=== PATIENT | female | born 1990 | race Caucasian/White ===

== ENCOUNTER 2017-01-05 19:46 | Emergency (ER) | payer SELFPAY ==
[2017-01-05 19:55] VITALS: BP 98/61; PULSE 82; RESP 16; TEMP 98.2; O2SAT 100
--- NOTE | 2017-01-05 21:18 | C.PDOC ---
History Of Present Illness 26 yr old female presents to the ER stating several years ago she had a neck injury and since then time to time she gets neck spasm. Patient states currently the pain has been present for the past 2-3 days and radiates to bilateral arms. Patient attributes the pain this time to sleeping wrong, states she woke up with pain. Patient denies chest pain, SOB, back pain, weakness or numbness. Time Seen by Provider: 01/05/17 20:05 Chief Complaint (Nursing): Medical Clearance History Per: Patient History/Exam Limitations: no limitations Onset/Duration Of Symptoms: Days (2-3 days ) Past Medical History Reviewed: Historical Data, Nursing Documentation, Vital Signs Vital Signs: Last Vital Signs Temp 98.2 F 01/05/17 19:52 Pulse 82 01/05/17 19:52 Resp 16 01/05/17 19:52 BP 98/61 L 01/05/17 19:52 Pulse Ox 100 01/05/17 21:48 Family History: States: No Known Family Hx - Social History Hx Tobacco Use: No Hx Alcohol Use: No Hx Substance Use: No - Immunization History Hx Tetanus Toxoid Vaccination: Yes Hx Influenza Vaccination: Yes Hx Pneumococcal Vaccination: No Review Of Systems Except As Marked, All Systems Reviewed And Found Negative. Cardiovascular: Negative for: Chest Pain Respiratory: Negative for: Shortness of Breath Musculoskeletal: Positive for: Neck Pain (Neck spasm ). Negative for: Back Pain Neurological: Negative for: Weakness, Numbness Physical Exam - Physical Exam Appears: Well, Non-toxic, No Acute Distress Skin: Warm, Dry, No Rash Head: Atraumatic, Normacephalic Oral Mucosa: Moist Neck: Normal ROM, No Midline Cervical Tenderness, Other ((+) Tenderness to the bilateral lateral neck muscle. ) Chest: Symmetrical, No Tenderness Cardiovascular: Rhythm Regular, No Murmur Back: Paraspinal Tenderness (Paraspinal muscle tenderness) Extremity: Normal ROM, No Swelling Neurological/Psych: Oriented x3, Normal Speech, Normal Motor ED Course And Treatment O2 Sat by Pulse Oximetry: 100 Progress Note: On re-evaluation patient feels better, no neuro deficit, no meningeal signs. Patient will be d/chome with PMD/Clinic follow up. Medical Decision Making Medical Decision Making: PLAN: * Valium PO * Toradol IM Disposition - Disposition Referrals: [facility] at [facility] [Outside] Disposition: HOME/ ROUTINE Disposition Time: 21:45 Condition: STABLE Additional Instructions: Follow up in Clinic within 2-3 days. return to ED if feel worse. 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 - Scribe Statement The provider has reviewed the documentation as recorded by the Scribe Anju Vazquez All medical record entries made by the Scribe were at my direction and personally dictated by me. I have reviewed the chart and agree that the record accurately reflects my personal performance of the history, physical exam, medical decision making, and the department course for this patient. I have also personally directed, reviewed, and agree with the discharge instructions and disposition.
== END 2017-01-05 21:52 | disposition home or self-care (01) ==
LOC: C.ER 19:46
DX: M54.12 Radiculopathy, cervical region (principal); M62.838 Other muscle spasm
CPT/HCPCS: 96372; 99282; J1885

== ENCOUNTER 2017-08-19 14:55 | Emergency (ER) | payer SELFPAY ==
[2017-08-19 15:03] VITALS: PULSE 95; RESP 18; TEMP 99
--- NOTE | 2017-08-19 16:51 | C.PDOC ---
History Of Present Illness Gladys Edmonds is a 26 y/o female who presents to the ER for 1 week history of cough, with yellow-cody sputum. Today noticed sputum with streak of blood x1 episode. No shortness of breath or fever. Symptoms are associated with bilateral ear pain and throat pain. Pt drinking tea but not taking any analgesics at home. Time Seen by Provider: 08/19/17 15:31 Chief Complaint (Nursing): Cough, Cold, Congestion History Per: Patient History/Exam Limitations: no limitations Onset/Duration Of Symptoms: Days (x 1 week) Current Symptoms Are (Timing): Still Present Past Medical History Reviewed: Historical Data, Nursing Documentation, Vital Signs Vital Signs: Last Vital Signs Temp 99 F 08/19/17 16:57 Pulse 95 H 08/19/17 16:57 Resp 18 08/19/17 16:57 BP 100/60 08/19/17 16:57 Pulse Ox 98 08/19/17 16:57 - Medical History PMH: No Chronic Diseases Surgical History: No Surg Hx Family History: States: Unknown Family Hx - Social History Hx Tobacco Use: No Hx Alcohol Use: No Hx Substance Use: No - Immunization History Hx Tetanus Toxoid Vaccination: Yes Hx Influenza Vaccination: Yes Hx Pneumococcal Vaccination: No Review Of Systems Constitutional: Negative for: Fever ENT: Positive for: Ear Pain (B/L), Throat Pain Respiratory: Positive for: Cough, Sputum (yellow, + blood). Negative for: Shortness of Breath Physical Exam - Physical Exam Appears: Non-toxic, No Acute Distress Skin: Normal Color, Warm, Dry Head: Atraumatic, Normacephalic Eye(s): bilateral: Normal Inspection, PERRL, EOMI Ear(s): Left: Normal, Right: TM Obscured By Wax Nose: Normal Throat: Erythema, No Exudate (or tonsillar swelling) Neck: Normal ROM, Supple Lymphatic: Other (1 tender posterior cervical node on right side) Cardiovascular: Rhythm Regular, No Murmur Respiratory: Normal Breath Sounds (clear to auscultation b/l), No Accessory Muscle Use, No Rhonchi, No Wheezing Gastrointestinal/Abdominal: Normal Exam, Bowel Sounds (normal), Soft, No Tenderness Neurological/Psych: Oriented x3, Normal Speech ED Course And Treatment O2 Sat by Pulse Oximetry: 100 (RA) Pulse Ox Interpretation: Normal Medical Decision Making Medical Decision Making: Initial Plan: Tylenol 975 mg PO Impression: URI Pt is medically stable for discharge. Advised taking mucinex for cough, and tylenol/motrin for pain. Disposition Counseled Patient/Family Regarding: Diagnosis, Need For Followup - Disposition Referrals: [facility] [Outside] Disposition: HOME/ ROUTINE Disposition Time: 16:52 Condition: STABLE Additional Instructions: Please drink increased fluids, avoid dairy for a few days. Mucinex for cough. Tylenol or Motrin for ear, throat and back pain. Increase bed rest. Follow up next week with clinic if symptoms not decreasing/resolving. 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 - Scribe Statement The provider has reviewed the documentation as recorded by the Scribe (Yudith Silva) All medical record entries made by the Scribe were at my direction and personally dictated by me. I have reviewed the chart and agree that the record accurately reflects my personal performance of the history, physical exam, medical decision making, and the department course for this patient. I have also personally directed, reviewed, and agree with the discharge instructions and disposition.
[2017-08-19 16:59] VITALS: BP 100/60
[2017-08-19 17:28] VITALS: O2SAT 100
== END 2017-08-19 16:57 | disposition home or self-care (01) ==
LOC: C.ER 14:55
DX: J06.9 Acute upper respiratory infection, unspecified (principal)

== ENCOUNTER 2017-10-05 05:03 | Emergency (ER) | payer SELFPAY ==
[2017-10-05 05:18] LABS: SQUAMOUS EPITHIAL 9 /hpf (0-5)
[2017-10-05 05:19] LABS: HCG,QUALITATIVE URINE NEGATIVE (NEGATIVE); URINE BILIRUBIN NEGATIVE (NEGATIVE); URINE BLOOD TRACE (NEGATIVE); URINE CLARITY Clear (Clear); URINE COLOR YELLOW (YELLOW); URINE GLUCOSE (UA) NEGATIVE (Normal); URINE LEUKOCYTE ESTERASE TRACE Leu/uL (Negative); URINE NITRATE NEGATIVE (NEGATIVE); URINE PROTEIN NEGATIVE (NEGATIVE); URINE UROBILINOGEN Normal mg/dL (0.2-1.0)
[2017-10-05 05:23] VITALS: TEMP 98.1; O2SAT 100
[2017-10-05] MEDS ORDERED: cefTRIAXone 250 MG, Lidocaine Hydrochloride 1% 1 ML IM ONE (05:36)
--- NOTE | 2017-10-05 05:44 | C.PDOC ---
History Of Present Illness 27 year old female presents to the ER with a complaint of dysuria associated with urinary frequency for the past 3 days. Patient also reports having foul smelling discharge for the past month. Denies fever, back pain, vomiting, or diarrhea. Time Seen by Provider: 10/05/17 05:20 Chief Complaint (Nursing): Female Genitourinary History Per: Patient History/Exam Limitations: no limitations Onset/Duration Of Symptoms: Days Current Symptoms Are (Timing): Still Present Quality Of Discomfort: Unable To Describe Associated Symptoms: denies: Fever, Vomiting, Diarrhea, Back Pain Alleviating Factors: None Recent travel outside of the [place]: No Abnormal Vaginal Bleeding: No Past Medical History Reviewed: Historical Data, Nursing Documentation, Vital Signs Vital Signs: Last Vital Signs Temp 98.1 F 10/05/17 05:15 Pulse 78 10/05/17 06:13 Resp 18 10/05/17 06:13 BP 108/72 10/05/17 06:13 Pulse Ox 100 10/05/17 06:13 Family History: States: Unknown Family Hx - Social History Hx Tobacco Use: No Hx Alcohol Use: No Hx Substance Use: No - Immunization History Hx Tetanus Toxoid Vaccination: Yes Hx Influenza Vaccination: Yes Hx Pneumococcal Vaccination: No Review Of Systems Constitutional: Negative for: Fever Gastrointestinal: Negative for: Vomiting, Diarrhea Genitourinary: Positive for: Dysuria, Frequency Musculoskeletal: Negative for: Back Pain Physical Exam - Physical Exam Appears: Non-toxic, No Acute Distress Skin: Normal Color, Warm, Dry Head: Atraumatic, Normacephalic Eye(s): bilateral: Normal Inspection Oral Mucosa: Moist Chest: Symmetrical, No Tenderness Cardiovascular: Rhythm Regular Respiratory: Normal Breath Sounds, No Rales, No Rhonchi, No Wheezing Gastrointestinal/Abdominal: Soft, No Tenderness Back: No CVA Tenderness Neurological/Psych: Oriented x3, Normal Speech ED Course And Treatment O2 Sat by Pulse Oximetry: 100 (Room air) Pulse Ox Interpretation: Normal Medical Decision Making Medical Decision Making: Urinalysis ordered, results were slightly positive for UTI. Will started on macrobid, rocephin, and zithromax and instruct to follow up with HEEL SEAT POUNDER. Disposition - Disposition Referrals: [facility] [Outside] Disposition: HOME/ ROUTINE Disposition Time: 06:19 Condition: GOOD Additional Instructions: Follow up with the OBGYN within 1-2 days. Return if worsened. 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 - Scribe Statement The provider has reviewed the documentation as recorded by the Scriboumou Woodard All medical record entries made by the Guerda were at my direction and personally dictated by me. I have reviewed the chart and agree that the record accurately reflects my personal performance of the history, physical exam, medical decision making, and the department course for this patient. I have also personally directed, reviewed, and agree with the discharge instructions and disposition.
[2017-10-05 06:14] VITALS: BP 108/72; PULSE 78; RESP 18
== END 2017-10-05 06:45 | disposition home or self-care (01) ==
LOC: C.ER 05:03
DX: N76.0 Acute vaginitis (principal)
CPT/HCPCS: 81001; 84703; 87086; 87181; 96372; 99284; J0696

== ENCOUNTER 2017-12-10 20:25 | Emergency (ER) | payer SELFPAY ==
[2017-12-10 20:25] VITALS: BMI 24.5
[2017-12-10 20:47] VITALS: BP 100/61; PULSE 77; RESP 20; TEMP 98.7; O2SAT 100
--- NOTE | 2017-12-10 20:55 | C.PDOC ---
History Of Present Illness 27 year old female presents to the ED c/o sore throat for the past 3 days. Patient reports she noticed some white spots in the back of her throat. Patient states her daughter was also diagnosed and treated for strep throat. Patient denies fever, chills, nausea, vomit, diarrhea. Time Seen by Provider: 12/10/17 20:49 Chief Complaint (Nursing): ENT Problem History Per: Patient History/Exam Limitations: no limitations Onset/Duration Of Symptoms: Days Current Symptoms Are (Timing): Still Present Location Of Pain: Throat Sick Contacts (Context): Family Member(s) (daughter) Associated Symptoms: Sore Throat Ear Symptoms: Bilateral: None Recent travel outside of the [place]: No Additional History Per: Patient Past Medical History Reviewed: Historical Data, Nursing Documentation, Vital Signs Vital Signs: Last Vital Signs Temp 98.7 F 12/10/17 20:44 Pulse 77 12/10/17 20:44 Resp 20 12/10/17 20:44 BP 100/61 12/10/17 20:44 Pulse Ox 100 12/10/17 21:04 - Medical History PMH: No Chronic Diseases Surgical History: No Surg Hx Family History: States: Unknown Family Hx - Social History Hx Tobacco Use: No Hx Alcohol Use: No Hx Substance Use: No - Immunization History Hx Tetanus Toxoid Vaccination: Yes Hx Influenza Vaccination: Yes Hx Pneumococcal Vaccination: No Review Of Systems Constitutional: Negative for: Fever, Chills ENT: Positive for: Throat Pain Cardiovascular: Negative for: Chest Pain Respiratory: Negative for: Cough, Shortness of Breath Skin: Negative for: Rash Physical Exam - Physical Exam Appears: Non-toxic, No Acute Distress Skin: Normal Color, Warm, Dry Head: Atraumatic, Normacephalic Eye(s): bilateral: Normal Inspection Ear(s): Bilateral: Normal Nose: No Discharge Oral Mucosa: Moist Throat: Erythema (pharyngeal ), Exudate (tonsilar) Neck: Normal ROM, Supple Chest: Symmetrical Cardiovascular: Rhythm Regular, No Murmur Respiratory: Normal Breath Sounds, No Rales, No Rhonchi, No Wheezing Gastrointestinal/Abdominal: Soft, No Tenderness, No Guarding, No Rebound Extremity: Normal ROM, No Tenderness, No Swelling Neurological/Psych: Oriented x3 Gait: Steady ED Course And Treatment O2 Sat by Pulse Oximetry: 100 (ON RA) Pulse Ox Interpretation: Normal Medical Decision Making Medical Decision Making: Plan: * Zithromax 500 mg PO Patient with acute pharyngitis and exposed to strep. Will treat with Zithromax, allergic to penicillin. Disposition Counseled Patient/Family Regarding: Diagnosis, Need For Followup, Rx Given - Disposition Referrals: [facility] [Outside] [facility] [Outside] Disposition: HOME/ ROUTINE Disposition Time: 21:15 Condition: GOOD Additional Instructions: Follow up with your primary medical doctor or clinic in 2-5 days for further evaluation. Take medications as prescribed. Take Tylenol or Motrin alternating every 4-6 hours for Fever 100.4F or higher. Rest and drink plenty of fluids to prevent dehydration. Try vanilla ice cream to improve eating/drinking, this is cold soothing and tastes good. May also try lozenges or cepacol spray over the counter. 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 - Scribe Statement The provider has reviewed the documentation as recorded by the Scribe Marcelino Tellez All medical record entries made by the Guerda were at my direction and personally dictated by me. I have reviewed the chart and agree that the record accurately reflects my personal performance of the history, physical exam, medical decision making, and the department course for this patient. I have also personally directed, reviewed, and agree with the discharge instructions and disposition.
== END 2017-12-10 21:18 | disposition home or self-care (01) ==
LOC: C.ER 20:25
DX: J02.9 Acute pharyngitis, unspecified (principal)

== ENCOUNTER 2018-07-30 09:13 | Emergency (ER) | payer MEDICAID ==
[2018-07-30 09:14] VITALS: BMI 24.5
[2018-07-30 09:50] VITALS: O2SAT 100
--- NOTE | 2018-07-30 10:18 | C.PDOC ---
History Of Present Illness 27 y/o female with history of UTI and PID presents to ED with c/o intermittent pelvic pain for 1 month. (+) low back pain (+) urinary frequency. States she took Doxycycline last night for pain. Patient denies fever, chills, nausea, v omiting, vaginal discharge, vaginal bleeding, abdominal pain, dysuria, sob or any other complaints at this time. LMP 06/18/18 Time Seen by Provider: 07/30/18 09:46 Chief Complaint (Nursing): Abdominal Pain History Per: Patient History/Exam Limitations: no limitations Onset/Duration Of Symptoms: Days Current Symptoms Are (Timing): Still Present Past Medical History Reviewed: Historical Data, Nursing Documentation, Vital Signs Vital Signs: Last Vital Signs Temp 98.8 F 07/30/18 09:30 Pulse 92 H 07/30/18 09:30 Resp 18 07/30/18 09:30 BP 91/59 L 07/30/18 09:30 Pulse Ox 100 07/30/18 09:30 - Medical History PMH: No Chronic Diseases Surgical History: No Surg Hx Family History: States: No Known Family Hx - Social History Hx Tobacco Use: No Hx Alcohol Use: No Hx Substance Use: No - Immunization History Hx Tetanus Toxoid Vaccination: No Hx Influenza Vaccination: No Hx Pneumococcal Vaccination: No Review Of Systems Except As Marked, All Systems Reviewed And Found Negative. Constitutional: Negative for: Fever, Chills Gastrointestinal: Positive for: Abdominal Pain. Negative for: Nausea, Vomiting Genitourinary: Positive for: Frequency Musculoskeletal: Positive for: Back Pain Skin: Negative for: Rash Physical Exam - Physical Exam Appears: Non-toxic, No Acute Distress Skin: Warm, Dry, No Rash Head: Atraumatic, Normacephalic Eye(s): bilateral: Normal Inspection, EOMI Nose: Normal Oral Mucosa: Moist Neck: Normal ROM, Supple Chest: Symmetrical Cardiovascular: Rhythm Regular Respiratory: Normal Breath Sounds, No Rales, No Rhonchi, No Wheezing Gastrointestinal/Abdominal: Soft, Tenderness (suprapubic), No Guarding, No Rebound Back: No CVA Tenderness, No Vertebral Tenderness, Paraspinal Tenderness ((+) lower paralumbar tenderness) Extremity: Normal ROM Neurological/Psych: Oriented x3, Normal Speech, Normal Cognition ED Course And Treatment - Laboratory Results Result Diagrams: 07/30/18 10:52 07/30/18 10:52 O2 Sat by Pulse Oximetry: 100 (RA) Pulse Ox Interpretation: Normal - CT Scan/US Abdomen US Other Rad Studies (CT/US): Interpreted By Me, Read By Radiologist CT/US Interpretation: Impression: Live single intrauterine with estimated gestational age 7 weeks 2 days by crown-rump length calculation. heart rate 144 bpm. 2.4 cm possible right corpus luteum as above; attention on follow-up. Small free fluid within the cul-de-sac and bilateral adnexa. Advise an anomaly screen at 16-18 weeks gestational age Progress Note: Urine culture sent, UA ordered. POC urine preg +, US ordered. Pt denies concern for STD stating "my boyfriend was tested" and "this feels different.". Pt declined pain medication. Discussed with pt results and limitations. Pt instructed to follow up with OB in 1-2 days. Disposition - Disposition Disposition: HOME/ ROUTINE Disposition Time: 13:36 Condition: STABLE Additional Instructions: Follow up with primary medical doctor in 1-3 days without fail for further evaluation. Take medications as prescribed. Return to the emergency department at any time if symptoms persist or worsen. 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 - Scribe Statement The provider has reviewed the documentation as recorded by the Guerda Mccloud All medical record entries made by the Guerda were at my direction and personally dictated by me. I have reviewed the chart and agree that the record accurately reflects my personal performance of the history, physical exam, medical decision making, and the department course for this patient. I have also personally directed, reviewed, and agree with the discharge instructions and disposition.
[2018-07-30 10:36] LABS: HCG,QUALITATIVE URINE POSITIVE (NEGATIVE)
[2018-07-30 10:47] LABS: SQUAMOUS EPITHIAL 8 /hpf (0-5); URINE BACTERIA RARE (<OCC); URINE BILIRUBIN NEGATIVE (NEGATIVE); URINE BLOOD 1+ (NEGATIVE); URINE CLARITY Hazy (Clear); URINE COLOR Yellow (YELLOW); URINE GLUCOSE (UA) NORMAL (Normal); URINE LEUKOCYTE ESTERASE 1+ Leu/uL (Negative); URINE PROTEIN 1+ mg/dL (NEGATIVE); URINE UROBILINOGEN NORMAL mg/dL (0.2-1.0)
[2018-07-30 11:04] LABS: BASO # 0.1 K/uL (0.0-0.2); BASO % 0.7 % (0.0-2.0); EOS # 0.1 K/uL (0.0-0.7); EOS % 1.2 % (0.0-4.0); HEMOGLOBIN 13.1 g/dL (11.0-16.0); LYMPH # 1.8 K/uL (1.0-4.3); LYMPH % 25.4 % (20.0-40.0); MEAN CELL VOLUME 84.8 fL (81.0-99.0); MEAN CORPUSCULAR HEMOGLOBIN 28.4 pg (27.0-31.0); MEAN CORPUSCULAR HGB CONC 33.5 g/dL (33.0-37.0); MEAN PLATELET VOLUME 8.7 fL (7.2-11.7); MONO # 0.5 K/uL (0.0-0.8); MONO % 7.6 % (0.0-10.0); NEUT # 4.6 K/uL (1.8-7.0); NEUT % 65.1 % (50.0-75.0); NRBC % 0.1 % (0.0-2.0); RBC 4.62 Mil/uL (3.80-5.20); RED CELL DISTRIBUTION WIDTH 12.5 % (11.5-14.5); WHITE BLOOD COUNT 7.1 K/uL (4.8-10.8)
[2018-07-30 11:23] LABS: ALB/GLOB RATIO 1.3 (1.0-2.1); ALBUMIN 4.1 g/dL (3.5-5.0); ALT/SGPT 21 U/L (9-52); AST/SGOT 18 U/L (14-36); BLOOD UREA NITROGEN 7 mg/dL (7-17); CALCIUM 9.2 mg/dl (8.6-10.4); GFR NON-AFRICAN AMERICAN > 60
[2018-07-30 12:47] VITALS: TEMP 98.5
--- NOTE | 2018-07-30 12:51 | US ---
Indication: Pain Comparison: 1st trimester ultrasound performed 09/21/14 Technique: Real-time transabdominal pelvic ultrasound was performed. In addition a transvaginal pelvic ultrasound was necessary to better depict pelvic anatomy. Findings: The uterus measures approximately 9.2 x 4.8 x 5.7 cm. Anteverted. Cervix length measures approximately 3.5 cm. There is a single intrauterine fetus present. 2 mm yolk sac. The gestational sac measures 2.4 cm and is compatible with a gestational age of 7 weeks 0 days. The crown-rump length measures 1.1 cm and is compatible with a gestational age of 7 weeks 2 days. There is heart motion which measured 144 BPM. The right ovary measures 4.1 x 2.7 x 3.2 cm. 2.2 x 1.8 x 2.4 cm heterogeneous lesion with peripheral vascularity, possibly corpus luteum. The left ovary measures 3.0 x 1.8 x 2.8 cm. Blood flow was demonstrated to both ovaries. Small pelvic free fluid within the cul-de-sac and bilateral adnexa. Impression: Live single intrauterine with estimated gestational age 7 weeks 2 days by crown-rump length calculation. heart rate 144 bpm. 2.4 cm possible right corpus luteum as above; attention on follow-up. Small free fluid within the cul-de-sac and bilateral adnexa. Advise an anomaly screen at 16-18 weeks gestational age
[2018-07-30 13:57] VITALS: BP 100/57; PULSE 83; RESP 20
== END 2018-07-30 13:56 | disposition home or self-care (01) ==
LOC: C.ER 09:13
DX: O23.41 Unspecified infection of urinary tract in pregnancy, first trimester (principal); Z3A.01 Less than 8 weeks gestation of pregnancy

== ENCOUNTER 2018-08-08 10:42 | Emergency (ER) | payer MEDICAID, OTHER ==
[2018-08-08 10:42] VITALS: BMI 24.5
[2018-08-08 11:00] VITALS: RESP 18
--- NOTE | 2018-08-08 11:31 | C.PDOC ---
History Of Present Illness 27 year old female /A5 who is currently 8 weeks presents to the ED for evaluation for vaginal bleeding and abdominal pain for 1 day. The patient describes the abdominal pain as cramping and notes bleeding vaginally with clots/tissue 1 day ago which has since resolved. She also reports prior ED visit 1 week ago where she was treated for abdominal pain, intrauterine confirmed, prescribed Macrobid, and states finishing the prescribed medications with no complications. Currently she does not have a PMD, pending SIGNALING DESIGN ENGINEER appointment for August 16. Denies fever, chills, nausea, vomiting, diarrhea, chest pain, shortness of breath, and any other associated symptoms. LMP: Last : February 2017 No PMD. Time Seen by Provider: 08/08/18 10:59 Chief Complaint (Nursing): Abdominal Pain History Per: Patient History/Exam Limitations: no limitations Onset/Duration Of Symptoms: Days (x1) Current Symptoms Are (Timing): Still Present Location Of Pain/Discomfort: Suprapubic Quality Of Discomfort: Cramping Recent travel outside of the [place]: No Past Medical History Reviewed: Historical Data, Nursing Documentation, Vital Signs Vital Signs: Last Vital Signs Temp 98.2 F 08/08/18 10:52 Pulse 83 08/08/18 10:52 Resp 18 08/08/18 10:52 BP 90/57 L 08/08/18 10:52 Pulse Ox 99 08/08/18 10:52 - Medical History PMH: No Chronic Diseases Family History: States: Unknown Family Hx - Social History Hx Tobacco Use: No Hx Alcohol Use: No Hx Substance Use: No - Immunization History Hx Tetanus Toxoid Vaccination: No Hx Influenza Vaccination: No Hx Pneumococcal Vaccination: No Review Of Systems Except As Marked, All Systems Reviewed And Found Negative. Constitutional: Negative for: Fever, Chills Eyes: Negative for: Vision Change Cardiovascular: Negative for: Chest Pain, Palpitations Respiratory: Negative for: Cough, Shortness of Breath Gastrointestinal: Positive for: Abdominal Pain. Negative for: Nausea, Vomiting, Diarrhea Genitourinary: Positive for: Vaginal Bleeding (clot/tissue. ) Musculoskeletal: Negative for: Neck Pain, Back Pain Skin: Negative for: Rash Neurological: Negative for: Weakness, Numbness, Headache, Dizziness Physical Exam - Physical Exam Appears: Well, Non-toxic, No Acute Distress Skin: Warm, Dry Head: Atraumatic, Normacephalic Eye(s): bilateral: Normal Inspection, PERRL, EOMI Ear(s): Bilateral: Normal Nose: Normal Oral Mucosa: Moist Neck: Normal ROM, Supple Chest: Symmetrical, No Deformity Cardiovascular: Rhythm Regular, No Murmur Respiratory: Normal Breath Sounds, No Rales, No Rhonchi, No Wheezing Gastrointestinal/Abdominal: Normal Exam, Bowel Sounds (normoactive), Soft, No Tenderness, No Distention, No Guarding Back: Normal Inspection, No CVA Tenderness Extremity: Normal ROM (x4), Capillary Refill (<2s) Extremity: Bilateral: Atraumatic, No Pedal Edema, Normal Color And Temperature, Normal ROM Pulses: Left Radial: Normal, Right Radial: Normal Neurological/Psych: Oriented x3, Normal Speech, Normal Cognition, Normal Motor, Normal Sensation Gait: Steady ED Course And Treatment - Laboratory Results Result Diagrams: 18 11:31 1218 11:31 Lab Interpretation: Normal O2 Sat by Pulse Oximetry: 99 (RA) Pulse Ox Interpretation: Normal - CT Scan/US US Pelvic/Transvag. Other Rad Studies (CT/US): Read By Radiologist CT/US Interpretation: FINDINGS: UTERUS: Measures 11.2 x 6.6 x 8.7 cm. Anteve rted, enlarged with normal myometrial echotexture. No fibroid or other mass lesion seen. ENDOMETRIUM: Measures 2.3 mm in diameter. The central endometrial echo complex is thick and heterogeneous without central flow on color Doppler imaging. CERVIX: No cervical abnormality identified. RIGHT OVARY: Measures 5.0 x 2.1 x 3.7 cm. No solid mass. Normal flow. There is a 2.6 x 1.9 x 1.7 cm complicated/hemorrhagic cyst. LEFT OVARY: Measures 3.3 x 1.3 x 3.3 cm. No solid mass. Normal flow. FREE FLUID: There is moderate complicated free fluid in the pelvis. OTHER FINDINGS: None. IMPRESSION: No evidence of intrauterine gestation. Thick heterogeneous central endometrial echo complex. Clinical follow-up is advised. 2.6 cm complicated/hemorrhagic cyst in the right ovary. Complicated/hemorrhagic fluid in the cul de sac. Reevaluation Time: 13:30 Reassessment Condition: Improved - Physician Consult Information Time Consulting Physician Contacted: 13:20 Physician Contacted: Svetlana A Mahin Outcome Of Conversation: Diagnostic testing results reviewed in depth. Recommends discharge home with outpatient OBGYN followup. Medical Decision Making Medical Decision Making: Initial plan: -CBC, CMP, beta Hcg Urinalysis US Pelvis/Transvag -Urine culture. Patient with confirmed IUP on 07/30/18. Patient's bloodtype is B +, no indication for Rhogam at this time. Hypotension is patient's baseline. Patient is asymptomatic. Progress/Update: 13:20 Spoke with OB sewing machine operator floorperson Dr. Stockton regarding the patient's case. Recommends no further intervention, patient should follow-up as an outpatient with OBGYN. 13:30 Discussed results and diagnosis of complete spontaneous with the patient, who verbalized understanding. No medical complaints at this time. Admits to resolution of abdominal pain. Plan of care discussed with patient, and strict instructions given regarding prescriptions, importance of follow up, and signs to return to Emergency De partment, to include recurrent vaginal bleeding, abdominal pain, N/V, fever, chills, or any other new/worsening symptoms. Patient verbalizes understanding of discussion. Patient A&Ox3, ambulating with steady gait, stable for discharge home. Disposition Discussed With Dr.: Svetlana Stockton Comment: Recommends outpatient followup Doctor Will See Patient In The: Office Counseled Patient/Family Regarding: Studies Performed, Diagnosis, Need For Followup, Rx Given - Disposition Referrals: [facility] [Outside] [facility] [Outside] Disposition: HOME/ ROUTINE Disposition Time: 13:30 Condition: GOOD Additional Instructions: Followup with OBGYN within 2 days Followup with primary doctor within 2 days Return to ER for any new/worsening symptoms Instructions: Miscarriage, Dealing With Miscarriage Forms: [facility] (Macedonian), Work Excuse - Clinical Impression Clinical Impression: Spontaneous - PA / FAMILY COURT COUNSELLOR / Resident Statement MD/DO has reviewed & agrees with the documentation as recorded. - Scribe Statement The provider has reviewed the documentation as recorded by the Scribe (Gela Sotelo) All medical record entries made by the Scribe were at my direction and personally dictated by me. I have reviewed the chart and agree that the record accurately reflects my personal performance of the history, physical exam, medical decision making, and the department course for this patient. I have also personally directed, reviewed, and agree with the discharge instructions and disposition.
[2018-08-08 11:44] LABS: BASO # 0.1 K/uL (0.0-0.2); BASO % 0.9 % (0.0-2.0); EOS # 0.2 K/uL (0.0-0.7); HEMOGLOBIN 12.5 g/dL (11.0-16.0); LYMPH # 1.6 K/uL (1.0-4.3); LYMPH % 24.4 % (20.0-40.0); MEAN CELL VOLUME 86.4 fL (81.0-99.0); MEAN CORPUSCULAR HEMOGLOBIN 29.1 pg (27.0-31.0); MEAN CORPUSCULAR HGB CONC 33.6 g/dL (33.0-37.0); MEAN PLATELET VOLUME 8.7 fL (7.2-11.7); MONO # 0.3 K/uL (0.0-0.8); MONO % 4.2 % (0.0-10.0); NEUT # 4.5 K/uL (1.8-7.0); NEUT % 67.5 % (50.0-75.0); RBC 4.31 Mil/uL (3.80-5.20); RED CELL DISTRIBUTION WIDTH 12.6 % (11.5-14.5); WHITE BLOOD COUNT 6.7 K/uL (4.8-10.8)
[2018-08-08 11:56] LABS: SQUAMOUS EPITHIAL 8 /hpf (0-5); URINE BACTERIA RARE (<OCC); URINE BILIRUBIN NEGATIVE (NEGATIVE); URINE BLOOD 2+ (NEGATIVE); URINE CLARITY Clear (Clear); URINE COLOR Yellow (YELLOW); URINE GLUCOSE (UA) NORMAL (Normal); URINE LEUKOCYTE ESTERASE NEG Leu/uL (Negative); URINE PROTEIN NEGATIVE (NEGATIVE); URINE UROBILINOGEN NORMAL mg/dL (0.2-1.0)
[2018-08-08 12:03] LABS: ALB/GLOB RATIO 1.4 (1.0-2.1); ALBUMIN 4.3 g/dL (3.5-5.0); ALT/SGPT 18 U/L (9-52); AST/SGOT 24 U/L (14-36); BLOOD UREA NITROGEN 8 mg/dL (7-17); CALCIUM 8.9 mg/dl (8.6-10.4); GFR NON-AFRICAN AMERICAN > 60
--- NOTE | 2018-08-08 12:51 | US ---
Date of service: 08/08/2018 HISTORY: OB, 8wks , vaginal bleeding, abdominal pain COMPARISON: None available. TECHNIQUE: Transabdominal and transvaginal pelvic ultrasound was performed. FINDINGS: UTERUS: Measures 11.2 x 6.6 x 8.7 cm. Anteverted, enlarged with normal myometrial echotexture. No fibroid or other mass lesion seen. ENDOMETRIUM: Measures 2.3 mm in diameter. The central endometrial echo complex is thick and heterogeneous without central flow on color Doppler imaging. CERVIX: No cervical abnormality identified. RIGHT OVARY: Measures 5.0 x 2.1 x 3.7 cm. No solid mass. Normal flow. There is a 2.6 x 1.9 x 1.7 cm complicated/hemorrhagic cyst. LEFT OVARY: Measures 3.3 x 1.3 x 3.3 cm. No solid mass. Normal flow. FREE FLUID: There is moderate complicated free fluid in the pelvis. OTHER FINDINGS: None. IMPRESSION: No evidence of intrauterine gestation. Thick heterogeneous central endometrial echo complex. Clinical follow-up is advised. 2.6 cm complicated/hemorrhagic cyst in the right ovary. Complicated/hemorrhagic fluid in the cul de sac.
[2018-08-08 13:33] VITALS: BP 93/66; PULSE 79; TEMP 99.1
[2018-08-08 23:21] VITALS: O2SAT 99
== END 2018-08-08 13:41 | disposition home or self-care (01) ==
LOC: C.ER 10:42
DX: O03.9 Complete or unspecified spontaneous abortion without complication (principal); Z3A.08 8 weeks gestation of pregnancy

== ENCOUNTER 2018-08-21 21:03 | Emergency (ER) | payer SELFPAY ==
[2018-08-21 21:03] VITALS: BMI 24.5
[2018-08-21 21:20] VITALS: PULSE 80
[2018-08-21] MEDS ORDERED: Sodium Chloride 0.9% 1,000 ML IV ONE (21:28)
--- NOTE | 2018-08-21 21:31 | C.PDOC ---
History Of Present Illness 27 year old female presents to the ER with a complaint of LUQ pain that began today. Patient states the pain radiates to the back. Denies dysuria or hematuria. Chief Complaint (Nursing): Abdominal Pain History Per: Patient History/Exam Limitations: no limitations Onset/Duration Of Symptoms: Hrs Current Symptoms Are (Timing): Still Present Location Of Pain/Discomfort: LUQ Radiation Of Pain To:: Back Quality Of Discomfort: Unable To Describe Associated Symptoms: denies: Urinary Symptoms Exacerbating Factors: None Alleviating Factors: None Recent travel outside of the [place]: No Abnormal Vaginal Bleeding: No Past Medical History Reviewed: Historical Data, Nursing Documentation, Vital Signs Vital Signs: Last Vital Signs Temp 98.5 F 08/21/18 21:16 Pulse 80 08/21/18 21:16 Resp 16 08/21/18 21:16 BP 100/64 08/21/18 21:16 Pulse Ox 100 08/21/18 21:16 Family History: States: Unknown Family Hx - Social History Hx Tobacco Use: No Hx Alcohol Use: No Hx Substance Use: No - Immunization History Hx Tetanus Toxoid Vaccination: No Hx Influenza Vaccination: No Hx Pneumococcal Vaccination: No Review Of Systems Constitutional: Negative for: Fever, Chills Cardiovascular: Negative for: Chest Pain, Palpitations Respiratory: Negative for: Cough, Shortness of Breath Gastrointestinal: Positive for: Abdominal Pain (Radiating to back) Genitourinary: Negative for: Dysuria, Hematuria Neurological: Negative for: Weakness, Numbness Physical Exam - Physical Exam Appears: Non-toxic Skin: Normal Color, Warm, Dry Head: Atraumatic, Normacephalic Eye(s): bilateral: Normal Inspection Oral Mucosa: Moist Neck: Normal, Supple Chest: Symmetrical, No Tenderness Cardiovascular: Rhythm Regular Respiratory: Normal Breath Sounds, No Rales, No Rhonchi, No Wheezing Gastrointestinal/Abdominal: Soft, Tenderness (LUQ), No Guarding, No Rebound Back: No CVA Tenderness Neurological/Psych: Oriented x3, Normal Speech ED Course And Treatment - Laboratory Results Result Diagrams: 08/21/18 21:51 08/21/18 21:51 O2 Sat by Pulse Oximetry: 100 (Room air) Pulse Ox Interpretation: Normal Progress Note: CT abd/pel, blood work, and urinalysis ordered. IV fluids and toradol administered. Disposition Counseled Patient/Family Regarding: Diagnosis - Disposition Referrals: [facility] at [facility] [Outside] Disposition: HOME/ ROUTINE Disposition Time: 02:27 Condition: STABLE Prescriptions: Dicyclomine [Bentyl] 10 mg PO TID #10 cap Famotidine [Pepcid] 20 mg PO BID #20 tab Instructions: Acute Abdomen (Belly Pain), Child (DC), Gastritis (DC) Forms: [employer] [facility] (Hebrew) - POA Present On Arrival: None - Clinical Impression Clinical Impression: Abdominal pain, Gastritis - Scribe Statement The provider has reviewed the documentation as recorded by the Scriboumou Woodard All medical record entries made by the Cieraiboumou were at my direction and personally dictated by me. I have reviewed the chart and agree that the record accurately reflects my personal performance of the history, physical exam, medical decision making, and the department course for this patient. I have also personally directed, reviewed, and agree with the discharge instructions and disposition.
[2018-08-21 21:56] LABS: BASO # 0.1 K/uL (0.0-0.2); BASO % 1.1 % (0.0-2.0); EOS # 0.1 K/uL (0.0-0.7); HEMOGLOBIN 13.5 g/dL (11.0-16.0); LYMPH # 2.9 K/uL (1.0-4.3); LYMPH % 38.7 % (20.0-40.0); MEAN CELL VOLUME 86.7 fL (81.0-99.0); MEAN CORPUSCULAR HEMOGLOBIN 28.4 pg (27.0-31.0); MEAN CORPUSCULAR HGB CONC 32.8 g/dL (33.0-37.0); MEAN PLATELET VOLUME 8.2 fL (7.2-11.7); MONO # 0.4 K/uL (0.0-0.8); MONO % 5.5 % (0.0-10.0); NEUT # 3.9 K/uL (1.8-7.0); NEUT % 52.7 % (50.0-75.0); RBC 4.77 Mil/uL (3.80-5.20); RED CELL DISTRIBUTION WIDTH 12.4 % (11.5-14.5); WHITE BLOOD COUNT 7.4 K/uL (4.8-10.8)
[2018-08-21 21:56] LABS: SQUAMOUS EPITHIAL 9 /hpf (0-5); URINE AMORPHOUS SEDIMENT RARE /ul (<OCC); URINE BACTERIA RARE (<OCC); URINE BILIRUBIN NEGATIVE (NEGATIVE); URINE BLOOD 1+ (NEGATIVE); URINE CLARITY Hazy (Clear); URINE COLOR Yellow (YELLOW); URINE GLUCOSE (UA) NORMAL (Normal); URINE LEUKOCYTE ESTERASE NEG Leu/uL (Negative); URINE PROTEIN NEGATIVE (NEGATIVE)
[2018-08-21 22:24] LABS: ALB/GLOB RATIO 1.4 (1.0-2.1); ALBUMIN 4.5 g/dL (3.5-5.0); ALT/SGPT 15 U/L (9-52); AST/SGOT 22 U/L (14-36); BLOOD UREA NITROGEN 10 mg/dL (7-17); CALCIUM 9.1 mg/dl (8.6-10.4); GFR NON-AFRICAN AMERICAN > 60; LIPASE 101 U/L (23-300)
[2018-08-21] MEDS ORDERED: Iodixanol 320 MG/ML 100 ML BOTTLE IV ONE (22:53)
[2018-08-22 02:47] VITALS: BP 90/63; RESP 20; TEMP 98.3; O2SAT 98
--- NOTE | 2018-08-22 13:19 | CT ---
Date of service: 08/21/2018 PROCEDURE: CT Abdomen and Pelvis with contrast HISTORY: left upper abd pain COMPARISON: None available. TECHNIQUE: Contrast dose: 100 mL Visipaque 320 IV Radiation dose: Total exam DLP = 207.15 mGy-cm. This CT exam was performed using one or more of the following dose reduction techniques: Automated exposure control, adjustment of the mA and/or kV according to patient size, and/or use of iterative reconstruction technique. FINDINGS: LOWER THORAX: No visible consolidation, pleural effusion, or pneumothorax. LIVER: Unremarkable. GALLBLADDER AND BILE DUCTS: Unremarkable. PANCREAS: Unremarkable. SPLEEN: Unremarkable. ADRENALS: Unremarkable. KIDNEYS AND URETERS: The kidneys enhance symmetrically. No hydronephrosis or obstructing calculus identified. VASCULATURE: No aortic aneurysm. No atherosclerotic calcification or mural plaque present. BOWEL: Stomach is nondistended. Lack of oral contrast limits evaluation for bowel pathology. Bowel loops appear within normal limits of caliber without evidence of obstruction. APPENDIX: No secondary signs of acute appendicitis. PERITONEUM: No significant free fluid. No definite free air. LYMPH NODES: No bulky adenopathy identified. BLADDER: Under distention of the urinary bladder appears otherwise unremarkable. REPRODUCTIVE: The uterus is present. Evidence of fluid distending the endometrium. BONES: No acute osseous abnormality is detected. OTHER FINDINGS: None. IMPRESSION: Fluid appears to distend the endometrial canal. Otherwise unremarkable. Preliminary impression was provided by [employer].
== END 2018-08-22 02:55 | disposition home or self-care (01) ==
LOC: C.ER 21:03
DX: K29.70 Gastritis, unspecified, without bleeding (principal); R10.12 Left upper quadrant pain
CPT/HCPCS: 74177; 80053; 81001; 83690; 84703; 85025; 96374; 99285; J1885; J7030; Q9967

== ENCOUNTER 2018-09-04 10:45 | Emergency (ER) | payer SELFPAY ==
[2018-09-04 10:45] VITALS: BMI 24.5
--- NOTE | 2018-09-04 13:33 | C.PDOC ---
History Of Present Illness 28 y/o female presents to ED c/o diffuse abdominal pain, bilateral upper abdominal pain, and pelvic pain x3 weeks. She states symptoms began after she had a D&E on 08/20/18, with a cervical block; Pain apparently began the day aft er. She states she was seen in the ER 1 week ago for same symptoms, was told she may have gastritis. Patient denies nausea, vomiting, diarrhea, dysuria/hematuria. She admits to one episode of thick white discharge yesterday, but states that resolved. Time Seen by Provider: 09/04/18 11:17 Chief Complaint (Nursing): Abdominal Pain History Per: Patient History/Exam Limitations: no limitations Onset/Duration Of Symptoms: Persistent Current Symptoms Are (Timing): Still Present Severity: Mild Quality Of Discomfort: "Pain" Past Medical History Reviewed: Historical Data, Nursing Documentation, Vital Signs Vital Signs: Last Vital Signs Temp 98.5 F 09/04/18 11:05 Pulse 86 09/04/18 11:05 Resp 17 09/04/18 11:05 BP 101/70 09/04/18 11:05 Pulse Ox 100 09/04/18 11:05 - Medical History PMH: No Chronic Diseases Other Surgeries: D&E 08/14/18 Family History: States: No Known Family Hx - Social History Hx Tobacco Use: No Hx Alcohol Use: No Hx Substance Use: No - Immunization History Hx Tetanus Toxoid Vaccination: No Hx Influenza Vaccination: No Hx Pneumococcal Vaccination: No Review Of Systems Constitutional: Negative for: Fever Cardiovascular: Negative for: Chest Pain Respiratory: Negative for: Shortness of Breath Gastrointestinal: Positive for: Abdominal Pain. Negative for: Nausea, Vomiting, Diarrhea Genitourinary: Positive for: Pelvic Pain. Negative for: Dysuria, Hematuria, Vaginal Bleeding Skin: Negative for: Rash Physical Exam - Physical Exam Appears: Well, Non-toxic, No Acute Distress Skin: Normal Color, Warm, Dry, No Rash Eye(s): bilateral: Normal Inspection Oral Mucosa: Moist Neck: Supple Cardiovascular: Rhythm Regular Respiratory: Normal Breath Sounds, No Rales, No Rhonchi, No Wheezing Gastrointestinal/Abdominal: Bowel Sounds, Soft, Tenderness (mild diffuse tenderness, greatest in suprapubic area), No Distention, No Guarding, No Rebound, Other ((-) McBurney's, (-) Rovsing's) Back: Normal Inspection, No CVA Tenderness Extremity: Bilateral: Atraumatic, Normal Color And Temperature, Normal ROM Neurological/Psych: Oriented x3 ED Course And Treatment - Laboratory Results Result Diagrams: 09/04/18 14:25 09/04/18 14:25 O2 Sat by Pulse Oximetry: 100 (RA) Pulse Ox Interpretation: Normal Progress Note: Blood work, UA, Upreg, transvaginal US ordered and reviewed. UPreg still (+) , beta is 64.94. Patient is still only three weeks post elective D&E . Disposition - Disposition Disposition Time: 19:00 Condition: STABLE Forms: [employer] (Slovak) - Clinical Impression Clinical Impression: Abdominal pain, Pelvic pain - Scribe Statement The provider has reviewed the documentation as recorded by the Cieraiboumou Sow Provider Attestation: All medical record entries made by the Cieraibe were at my direction and personally dictated by me. I have reviewed the chart and agree that the record accurately reflects my personal performance of the history, physical exam, medical decision making, and the department course for this patient. I have also personally directed, reviewed, and agree with the discharge instructions and disposition. Physician Patient Turnover Patient Signed Over To: Orlando Haji Handoff Comments: pending ultrasound, reassessment
[2018-09-04 14:47] LABS: BASO % 0.5 % (0.0-2.0); EOS # 0.1 K/uL (0.0-0.7); EOS % 1.8 % (0.0-4.0); HEMOGLOBIN 14.7 g/dL (11.0-16.0); LYMPH # 1.8 K/uL (1.0-4.3); LYMPH % 26.5 % (20.0-40.0); MEAN CELL VOLUME 88.6 fL (81.0-99.0); MEAN CORPUSCULAR HEMOGLOBIN 28.9 pg (27.0-31.0); MEAN CORPUSCULAR HGB CONC 32.7 g/dL (33.0-37.0); MEAN PLATELET VOLUME 8.8 fL (7.2-11.7); MONO # 0.3 K/uL (0.0-0.8); MONO % 4.6 % (0.0-10.0); NEUT # 4.5 K/uL (1.8-7.0); NEUT % 66.6 % (50.0-75.0); RBC 5.1 Mil/uL (3.80-5.20); RED CELL DISTRIBUTION WIDTH 12.5 % (11.5-14.5); WHITE BLOOD COUNT 6.8 K/uL (4.8-10.8)
[2018-09-04 14:53] LABS: HCG,QUALITATIVE URINE POSITIVE (NEGATIVE)
[2018-09-04 15:08] LABS: ALB/GLOB RATIO 1.4 (1.0-2.1); ALBUMIN 4.8 g/dL (3.5-5.0); ALT/SGPT 16 U/L (9-52); AST/SGOT 25 U/L (14-36); BLOOD UREA NITROGEN 11 mg/dL (7-17); CALCIUM 9.1 mg/dl (8.6-10.4); GFR NON-AFRICAN AMERICAN > 60; LIPASE 102 U/L (23-300)
[2018-09-04 15:42] LABS: SQUAMOUS EPITHIAL 11 /hpf (0-5); URINE BILIRUBIN NEGATIVE (NEGATIVE); URINE CLARITY Hazy (Clear); URINE COLOR Yellow (YELLOW); URINE GLUCOSE (UA) NORMAL (Normal); URINE LEUKOCYTE ESTERASE TRACE Leu/uL (Negative); URINE PROTEIN 1+ mg/dL (NEGATIVE); URINE UROBILINOGEN NORMAL mg/dL (0.2-1.0)
[2018-09-04 15:44] LABS: URINE BLOOD TRACE (NEGATIVE)
[2018-09-04 22:11] VITALS: BP 124/75; PULSE 84; RESP 14; TEMP 98.2; O2SAT 98
--- NOTE | 2018-09-05 13:16 | US ---
Date of service: 09/04/2018 PROCEDURE: HISTORY: s/p d+c COMPARISON: CT abdomen and pelvis 08/21/2018; 08/08/2018 pelvic transvaginal ultrasound TECHNIQUE: Transabdominal transvaginal FINDINGS: The uterus is anteverted measures 8.7 x 4.4 x by 5.0 cm. The fundal endometrial tissues appear abnormally heterogeneous here. Heterogeneous cystic hyperplastic changes are 1 consideration. Endometrial neoplasm not excluded. Beta HCG levels are 64.94. Paint Coating Machine Operator consultation is advised. A pelvic transvaginal ultrasound study referenced 08/08/2018 history of 8 weeks with vaginal bleeding and abdominal pain. The right ovary measures 4.6 x 3.1 x 4.3 cm. A 3.3 x 2.5 x 2.8 cm cyst is present. There is some free fluid adjacent to the ovary. Left ovary measures 2.2 x 1.7 x 2.4 cm. IMPRESSION: Thickened heterogeneous appearance to the endometrium at the fundal level. Benign and malignant endometrial pathologies here are considerations. Paint Coating Machine Operator consultation/follow-up recommended for tissue histology a considerations. Benign-appearing right ovarian cyst measuring up to 3 point 3 cm
== END 2018-09-04 21:16 | disposition home or self-care (01) ==
LOC: C.ER 10:45
DX: N83.209 Unspecified ovarian cyst, unspecified side (principal); R10.2 Pelvic and perineal pain